=== PATIENT | male | born 2000 | race Two or more races ===

== ENCOUNTER 2024-02-08 03:25 | Emergency (ER) | payer MEDICAID ==
[~2024-02-08] VITALS: Ht 193 cm; Wt 172.4 kg
[2024-02-08 04:03] LABS: BASOPHILS % (AUTO) 0.5 % (0.0-2.0); EOSINOPHILS # (AUTO) 0.2 K/uL (0.0-0.7); EOSINOPHILS % (AUTO) 2.8 % (0.0-7.0); HEMATOCRIT 44.1 % (36.7-47.1); HEMOGLOBIN 14.4 g/dL (12.5-16.3); LYMPHOCYTES % (AUTO) 23.7 % (20.5-51.5); MEAN CORPUSCULAR HGB CONC 33 g/dL (32.5-36.3); MEAN CORPUSCULAR VOLUME 79.5 fL (73.0-96.2); MONOCYTES # (AUTO) 0.6 K/uL (0.1-1.30); MONOCYTES % (AUTO) 6.8 % (0.0-11.0); NEUTROPHILS # (AUTO) 5.7 K/uL (1.8-8.9); NEUTROPHILS % (AUTO) 66.2 % (38.5-71.5); PLATELET COUNT (AUTO) 391 K/uL (152-348); RED BLOOD CELL COUNT(AUTO) 5.54 MIL/uL (4.06-5.63); RED CELL DISTRIBUTION WIDTH 13.7 % (12.1-16.2); WHITE BLOOD COUNT (AUTO) 8.6 K/uL (3.6-10.2)
[2024-02-08 04:08] LABS: DIFFERENTIAL COMMENT 1
[2024-02-08 04:11] LABS: CALCIUM 9.8 mg/dL (8.5-10.1); CREATININE 1.1 mg/dL (0.6-1.3); POTASSIUM 3.9 mmol/L (3.5-5.1)
[2024-02-08 04:17] LABS: ALBUMIN 3.8 g/dL (3.4-5.0); BILIRUBIN,TOTAL 0.2 mg/dL (0.2-1.0); TOTAL PROTEIN, SERUM 8.4 g/dL (6.4-8.2)
[2024-02-08] MEDS ORDERED: ONDANSETRON ODT 4 MG TAB.RAPDIS ONE (04:30)
[2024-02-08] MEDS: ONDANSETRON ODT 4 MG TAB.RAPDIS SL ONE (04:30)
[2024-02-08] MEDS: KETOROLAC TROMETHAMINE 30 MG INJ IM ONE (04:30)
[2024-02-08] MEDS ORDERED: KETOROLAC TROMETHAMINE 30 MG INJ ONE (04:30)
[2024-02-08] MEDS ORDERED: OMEP20TA20 PO (06:06)
[2024-02-08] MEDS ORDERED: HYDROCODONE/APAP 5-325MG TABLET ONE (07:03)
[2024-02-08] MEDS: HYDROCODONE/APAP 5-325MG TABLET PO ONE (07:05)
[2024-02-08 07:47] VITALS: BP 121/71; O2SAT 98
== END 2024-02-08 07:10 | disposition home or self-care (01) ==
LOC: ER 03:31
DX: R10.12 Left upper quadrant pain (principal); R07.81 Pleurodynia; Z79.899 Other long term (current) drug therapy
CPT/HCPCS: 99285; 74176; 80053; 81003; 83690; 85025; 36415; 96372; 83605; J1885; A4606; A4663; Q0162